=== PATIENT | female | born 1955 | race Caucasian/White ===

== ENCOUNTER 2016-07-06 09:50 | Emergency (ER) | payer OTHER ==
[~2016-07-06] VITALS: Ht 147.3 cm; Wt 58.0 kg
[2016-07-06 10:23] LABS: ADD MIUA? NO; BILIRUBIN NEGATIVE; BLOOD NEGATIVE; COLOR YELLOW ((YELLOW)); GLUCOSE (STRIP) NEGATIVE; KETONES NEGATIVE; LEUKOCYTES NEGATIVE; NITRITE NEGATIVE; PH, URINE 6.5 (5-8); PROTEIN (STRIP) 30; SPECIFIC GRAVITY 1.022 (1.000-1.030); UCUL ADDED? NO; UROBILINOGEN 0.2 MG/DL (0.2-1.0)
[2016-07-06 10:29] LABS: HEMATOCRIT 47.3 % (36.0-46.0); MCH 31.4 PG (29.0-34.0); MCHC 35.1 G/DL (30.0-36.0); MCV 89.4 FL (83-99); MEAN PLAT.VOLUME 9.3 uM^3 (9.5-12.4); PLATELET COUNT 355 K/uL (156-360); RBC DIS.WIDTH-CV 13.4 % (11.8-14.6); RED BLOOD COUNT 5.29 M/uL (3.80-5.20); WHITE BLOOD COUNT 13.6 K/uL (4.1-10.2)
[2016-07-06 10:39] LABS: CHLORIDE 100 mEq/L (99-109); POTASSIUM 4.3 mEq/L (3.7-5.4); SODIUM 135 mEq/L (136-147)
[2016-07-06 10:41] LABS: GLUCOSE 141 mg/dL (70-99)
[2016-07-06 10:42] LABS: ANION GAP 14 MEQ/L (2-14)
[2016-07-06 10:43] LABS: TOTAL BILIRUBIN 1.4 mg/dL (0.0-1.0)
[2016-07-06 10:44] LABS: ALKALINE PHOSPHATASE 108 IU/L (3-129)
[2016-07-06 10:45] LABS: GFR ESTIMATE (CALCULATED) > 59 mL/min/
[2016-07-06 10:46] LABS: UREA NITROGEN (BUN) 18 mg/dL (9-23)
[2016-07-06 11:10] LABS: LIPASE 23 U/L (1.0-51.0)
[2016-07-06] MEDS ORDERED: CITRATE OF MAG296 ML PO (12:25)
[2016-07-06] MEDS ORDERED: ZOFRAN ODT4 MG PO (12:25)
[2016-07-06] MEDS ORDERED: PRILOSEC20 MG PO (12:25)
[2016-07-06 12:51] VITALS: BP 129/71
== END 2016-07-06 13:30 | disposition home or self-care (01) ==
LOC: EME 09:50
DX: R10.13 Epigastric pain (principal); K59.00 Constipation, unspecified; E78.5 Hyperlipidemia, unspecified; I10 Essential (primary) hypertension; F17.200 Nicotine dependence, unspecified, uncomplicated; Z85.41 Personal history of malignant neoplasm of cervix uteri; Z88.6 Allergy status to analgesic agent; Z88.0 Allergy status to penicillin
CPT/HCPCS: 76705; 80053; 81003; 83690; 85027; 99281; 99284; J2270; J2405; J7030